=== PATIENT | male | born 1990 | race African-American/Black ===

== ENCOUNTER 2021-05-26 12:30 | Emergency (ER) | payer MEDICARE, MEDICAID ==
[~2021-05-26] VITALS: Ht 175.3 cm; Wt 95.3 kg
[~2021-05-26 12:30] MED LIST: AMOX-424 PO; INSULIN; KETOROLAC; SILV20CR13 TP; SIMV20TA2 PO; SIMVASTATIN; SITA100T11 PO
[2021-05-26 13:24] LABS: BASOPHILS % 0.9 % (0.0-2.0); EOSINOPHILS % 4.5 % (0.0-5.0); HEMATOCRIT. 31.5 % (42.0-52.0); LYMPHOCYTES % 23.1 % (20.0-50.0); MEAN CORPUSCULAR HEMOGLOBIN 23.4 pg (28.0-32.0); MEAN PLATELET VOLUME 7.7 fl (7.4-10.4); MONOCYTES % 5.7 % (2.0-8.0); NEUTROPHILS % 65.8 % (40.0-76.0); PLATELET 220 x1000/uL (130-400); RED BLOOD CELL COUNT 4.26 mill/uL (4.7-6.1); RED CELL DISTRIBUTION WIDTH 15.6 % (11.6-14.6)
[2021-05-26 13:36] LABS: CHLORIDE 104 mEq/L (98-107)
[2021-05-26 16:09] LABS: CLARITY URINE CLEAR (CLEAR); COLOR URINE YELLOW (YELLOW); KETONES URINE NEGATIVE (NEGATIVE); LEUKOCYTE ESTERASE URINE NEGATIVE (NEGATIVE); NITRITE URINE NEGATIVE (NEGATIVE); OCCULT BLOOD URINE NEGATIVE (NEGATIVE); PH URINE 8.5 (4.5-8.0); PROTEIN URINE 2+ (NEGATIVE); SPECIFIC GRAVITY URINE 1.009 (1.005-1.030); UROBILINOGEN URINE 0.2 E.U./dL (0.2-1.0)
[2021-05-26] MEDS ORDERED: CALCIUM CHLORIDE 1GM/10ML SYR IV ONE (18:00)
[2021-05-26 18:30] VITALS: BP 128/80
[2021-05-26] MEDS ORDERED: ONDANSETRON HCL 4MG/2ML INJ IV NR (18:30)
== END 2021-05-26 18:50 | disposition left against medical advice (07) ==
LOC: ER 12:30
DX: E11.22 Type 2 diabetes mellitus with diabetic chronic kidney disease (principal); E87.5 Hyperkalemia; N18.6 End stage renal disease; G91.9 Hydrocephalus, unspecified; Z99.2 Dependence on renal dialysis; Z79.4 Long term (current) use of insulin; Z98.890 Other specified postprocedural states
CPT/HCPCS: 36415; 71045; 80053; 81003; 83690; 85025; 96374; 96375; 99285; J2405; J3490